=== PATIENT | male | born 1990 | race Two or more races ===

== ENCOUNTER 2025-08-17 01:00 | Day surgery (SDC) | payer OTHER, SELFPAY ==
[2025-08-04 13:51] VITALS: BMI 28.7
--- NOTE | 2025-08-04 14:06 | SUR.PREOP ---
Report to the Outpatient Waiting Room, entrance under the green pavilion located off [facility], at time 1100 on date 08/17/25. Planned Procedure Time: 1300.? Time changes happen often and if your time is changed the preop area will call you the afternoon before. - You and your visitor will be asked to self-screen and do not enter if you have any COVID symptoms. Please call surgeon if you need to reschedule. - A mask is optional within the hospital at this time. Patients may have clear liquids (water, carbonated beverages, clear teas, apple juice) until 3 hours prior to surgery with a maximum of 20 ounces. - No food from midnight until time of surgery and no smoking, or chewing tobacco (or any form of nicotine). No chewing gum, candy or mints. Take only the following medications with a SIP of water on the morning of surgery: N/A DO NOT STOP ANY OF YOUR OTHER PRESCRIPTION MEDICATIONS PRIOR TO SURGERY EXCEPT THE FOLLOWING Hold all vitamins and supplements for 3 days per anesthesiologist. Medications to discontinue per physician N/A Date to take last dose N/A Please no make-up, nail hungarian, hairspray, perfume, deodorant, or body powder the day of surgery.? No jewelry (including any body piercings) or valuables the day of surgery, leave them at home.? Please take a shower or bath the night before, or the morning of, surgery with an antibacterial soap.? Wear comfortable, loose fitting clothing.? Children are encouraged to wear pajamas. - Jewelry must be removed prior to entering the operating room.? Rings and piercings that are not removed may be cut off. - The hospital will not accept responsibility for valuables.? - Please leave all valuables, including medications, at home the day of surgery. If you are going home after surgery, a licensed jukebox route driver must drive you home.? - NO public transportation without another adult if you receive anesthesia. - We recommend that an adult stay with you for 24 hours following discharge. - We also recommend that you do not drive, make important decision, drink alcoholic beverages, or take any drugs that were not prescribed by your health care provider for at least 24 hours after your discharge time. Follow any additional instructions given to you from your surgeon. Telephone instructions given to RONAN [employer] and asked if any additional questions and then verbalized understanding. Patient advised to call surgeon office or pre surgery nurse liaison [phone] if any additional questions.
--- NOTE | 2025-08-16 16:55 | PM.IMHP ---
H&P: HPI History of Present Illness Date/Time: 08/16/25 16:55 Chief Complaint: Septal deviation, turbinate hypertrophy, nasal obstruction Narrative: Planned surgical procedure Review of Systems Review of Systems: All systems reviewed & are unremarkable except as noted in HPI and below [facility] Family History Family History Father Heart disease Mother Diabetes mellitus Social History Social History Smoking status: Never smoker Living arrangements: with family Spiritual care concerns: No Meds Home Medications and Allergies Home Medications ?Medication ?Instructions ?Recorded ?Confirmed ?Type dextroamphetamine-amphetamine ER 5 5 mg PO DAILY 06/02/25 08/04/25 History mg 24hr capsule,extend release mupirocin 2 % topical ointment 1 applic topical BID #22 grams 06/02/25 08/04/25 Rx ([facility]) Allergies Allergy/AdvReac Type Severity Reaction Status Date / Time No Known Allergies Allergy Verified 08/04/25 14:22 Exam Narrative: Septal deviation, turbinate hypertrophy Assessment and Plan Assessment and plan (1) Nasal obstruction: Code(s): J34.89 - Other specified disorders of nose and nasal sinuses Status: Acute Assessment and Plan: Plan OR endoscopic assisted septoplasty and inferior turbinate reduction with outfracture bilaterally. Risks were discussed bleeding infection septal perforation damage to surrounding structures change in cosmetic appearance need further procedures. Time-out for time off school. Failure to resolve symptoms. CSF leak brain brain damage change in vision total blindness. Damage to any structure above the clavicles by myself. Damage to any structure during the induction and maintenance of anesthesia including vocal cord paralysis. Patient voiced understanding of these risks and agreed. (2) Nasal septal deviation: Code(s): J34.2 - Deviated nasal septum Status: Acute (3) Hypertrophy of both inferior nasal turbinates: Code(s): J34.3 - Hypertrophy of nasal turbinates Status: Acute
[2025-08-17] VITALS (9 sets, daily range): BP systolic 108–128; BP diastolic 58–85; PULSE 50–62; RESP 10–16; TEMP 36.6; O2SAT 98–100; BMI 29.0
--- NOTE | 2025-08-17 07:20 | WPDHPUPDATE1 ---
History and Physical Update Update Date/Time: 08/17/25 07:20 History and Physical has been reviewed, including an updated exam of the patient. There are NO changes in the patient's condition. Risks, benefits, and alternatives have been discussed and questions answered. Patient agrees to proceed with procedure.
[2025-08-17] MEDS: ACETAMINOPHEN 500 MG TABLET 1000 MG PO (10:13)
[2025-08-17] MEDS: LACTATED RINGERS 1,000 ML 30 ML IV CONT ×2 (10:20→13:06)
--- NOTE | 2025-08-17 11:29 | P.PNAN_ITS ---
Anes - Initial Pre Proc Eval Procedure: Operation Date: 08/17/25 11:15 Proposed Procedures p Bilateral Inferior Turbinate Reduction with Outfracture, - Dioni House MD s Endoscopic Septoplasty - Dioni House MD Date/Time: 08/17/25 11:29 Surgeon: Dioni House MD Pre Op Diagnosis: hypertrophy of turbinates, deviated septum, funicu Patient Data Age: 35 Gender: M Height: 1.78 m Weight: 91.8 kg Last Vital Signs Temp 97.8 F 08/17/25 09:27 Pulse 50 L 08/17/25 09:27 Resp 16 08/17/25 09:27 BP 108/68 08/17/25 09:27 Pulse Ox 98 08/17/25 09:27 O2 Del Method Room Air 08/17/25 09:27 Allergies Allergy/AdvReac Type Severity Reaction Status Date / Time No Known Allergies Allergy Verified 08/17/25 10:22 Home Medications ?Medication ?Instructions ?Recorded ?Confirmed ?Type dextroamphetamine-amphetamine ER 5 5 mg PO DAILY 06/0208/17/25 History mg 24hr capsule,extend release mupirocin 2 % topical ointment 1 applic topical BID #2 2 grams 06/02/25 08/17/25 Rx ([facility]) Patient hx anesthesia problems: none Family hx anesthesia problems: none Results Review: All pre-operative results and documents have been reviewed as part of the pre- operative evaluation. [facility] Family History Family History Father Heart disease Mother Diabetes mellitus Social History Social History Smoking status: Never smoker Living arrangements: with family Spiritual care concerns: No Anes - Eval Final PreProcedure Day of Procedure 08/17/25 11:29 Patient weight: normal and overweight Lungs: normal air movement Airway: Mallampati scale class II Neurological: alert and oriented Last oral intake: >/= 8 hours ASA classification: I Emergent: no Anesthetic plan: proceed Anesthesia type and monitoring: general ETT and standard monitoring Results Review: All pre-operative results and documents have been reviewed as part of the pre- operative evaluation. Healthy, active in the [employer], no cp or sob w physical activity. Informed Consent: The patient's anesthetic plan and its attendant risks and benefits were discussed with the patient/family/POA. Questions were solicited and answers provided to the satisfaction of the patient/family/POA.
[2025-08-17] MEDS: LIDO 1%/EPINEPHRINE 1:100,000 50 ML VIAL 10 ML INFILTRATE (11:45)
[2025-08-17] MEDS: ceFAZolin 2 GM in SODIUM CHLORIDE 0.9% IV 50 ML 100 ML IVPB (11:45)
[2025-08-17] MEDS: OXYMETAZOLINE HCL 0.05% NAS 15 ML BTL (*BKC) 1 SPRAY NASAL (12:07)
[2025-08-17] MEDS: MUPIROCIN 2% OINT 22 GM TUBE 1 APPLIC EACH NARE (12:41)
--- NOTE | 2025-08-17 13:17 | P.OP_ITS ---
Procedure Note - Detailed Date of Procedure 08/17/25 Pre-op Diagnosis hypertrophy of turbinates, deviated septum Post-op Diagnosis Same Procedure Performed 1. Endoscopic assisted septoplasty 2. Bilateral inferior turbinate reduction with outfracture Surgeon Dioni House MD Anesthesia General Indications See above Findings Severely hypertrophied turbinates, severe left septal deviation almost completely obstructing the left nasal passage. Description of Procedure Patient identified consent verified the preoperative holding area. Patient brought to the operating. Time-out performed. General anesthesia induced endotracheal tube secured airway. Patient prepped draped position procedure confirmed 2nd time-out performed. Total 15 cc 1% lidocaine with 1 100,000 parts epinephrine checked the bilateral nasal septum and inferior turbinates. Clarence incision made left-sided left nasal septal flap elevated with caudal elevator in 7 Guyanese suction. Osteotome utilized a crust with septum. Right nasal septal flap elevated with 7 Guyanese suction and caudal elevator. Deviated septum removed with osteotome, Hany Clayton forceps, and Kalen forceps. Septum irrigated out closed anteriorly with 3 interrupted 5 0 fast gut sutures. Other was a small tear on the left side over a large spur. No tears on the right- sided all. Turbinates then stabbed anteriorly with 15 blade, this was bilateral, and debrided in the submucosal plane using microdebrider with [employer] 1.9 mm turbinate blade. Small tears of no large tears good reduction good outfractured with a Maries elevator, very very good outfracture. Bilateral nasal passages irrigated sterile normal saline suctioned out. No active bleeding. Washburn splints placed sutured anteriorly using a 5 0 mattress nylon sorry 3-0 mattress nylon suture. Patient tolerated the procedure well no complications blood loss 15 cc. I performed all dictated portions of the procedure. Care the patient was given to Anesthesiology, patient taken to PACU. Estimated Blood Loss 15 Drains No Packing No Pathology None sent Complications No immediate complications Condition Stable Disposition PACU [facility] Billing Surgery - Charge Forward: Surgery Billing
[2025-08-17] MEDS: oxyCODONE HCL (*CRX) 5 MG TAB IR PO (14:37)
== END 2025-08-17 15:10 | disposition home or self-care (01) ==
PROVIDERS: Visit Provider Otolaryngology
PROC: (CPT 30520; principal; 2025-08-17 11:15)
PROC: (CPT 30520; 2025-08-17 11:15)
DX: J34.89 Other specified disorders of nose and nasal sinuses (principal); J34.2 Deviated nasal septum; J34.3 Hypertrophy of nasal turbinates; G89.18 Other acute postprocedural pain; Z82.49 Family history of ischemic heart disease and other diseases of the circulatory system
CPT/HCPCS: 30520; 30140; J0690; A9270; J1100; J1171; J2004; J2250; J2405; J2704; J3010; J7120